=== PATIENT | male | born 1980 | race Caucasian/White ===

== ENCOUNTER → 2018-12-12 08:40 | Outpatient (CLI) | payer OTHER, SELFPAY ==
--- NOTE | 2018-12-12 | DI.MRI.S_ITS ---
PROCEDURE: MR LUMBAR SPINE WO CON INDICATIONS: Radiculopathy, lumbar region TECHNIQUE: Noncontrast sagittal T1 spin echo and T2 fast echo, sagittal STIR, axial T1 and T2 fast spin echo through the lumbar spine. In cases with scoliosis, additional coronal T2 fast spin echo may be performed. COMPARISON: None. FINDINGS: Image quality: Excellent. Alignment and Curvature: There is normal bony alignment. Bone Marrow: There is a small intraosseous hemangioma in L1. A small Schmorl's node is noted in the superior endplate of L1. No acute vertebral body compression fractures. Spinal Cord: Conus medullaris terminates at the L1 level. Visualized cord demonstrates normal signal and size. Paraspinous Soft Tissues: No paravertebral masses. T12-L1: Mild loss of disc height and disc desiccation. There is mild posterior disc bulge. No central canal or foraminal stenosis. L1-L2: Normal appearance. L2-L3: Normal appearance. L3-L4: Mild loss of disc height and disc desiccation. There is mild posterior disc bulge. No central canal or foraminal stenosis. L4-L5: Normal appearance. L5-S1: Normal appearance. IMPRESSION: 1. Early degenerative disc disease at T12-L1 and L3-L4 with mild loss of disc height, disc desiccation and mild posterior disc bulge. 2. No central canal stenosis. 3. No foraminal stenosis. Dictated by: Shaquille Foley M.D. on 12/12/2018 at 11:09 Approved by: Shaquille Foley M.D. on 12/12/2018 at 11:14
== END ==
PROVIDERS: PCP Family Medicine; Visit Provider Family Medicine
DX: M51.16 Intervertebral disc disorders with radiculopathy, lumbar region (principal); M51.15 Intervertebral disc disorders with radiculopathy, thoracolumbar region
CPT/HCPCS: 72148

== ENCOUNTER → 2019-04-17 18:41 | Outpatient (CLI) | payer OTHER, SELFPAY ==
--- NOTE | 2019-04-17 | DI.MRI.S_ITS ---
PROCEDURE: MR PELVIS WO CON INDICATIONS: RLQ PAIN TECHNIQUE: Noncontrast coronal and axial T1 spin echo and STIR through the bony pelvis. COMPARISON: [facility], MR, MR LUMBAR SPINE WO CON, 12/12/2018, 9:08. [facility] [place], CR, XR PELVIS WITH LATERAL HIP RIGHT, 04/08/2019, 10:36. FINDINGS: Image quality: Excellent. Bones: Bone marrow of the pelvic ring, sacrum, and proximal femurs show normal signal throughout. No intraosseous lesions or fractures identified. SI joints are symmetric. No avascular necrosis of the femoral heads. Mild hip DJD. Tendons: The gluteus medius and minimus tendons appear intact, without associated muscle atrophy. The nearby proximal iliotibial band also appears intact. The iliopsoas tendon appears intact, without adjacent bursal fluid collections. The origin of the hamstring tendon is intact at the ischial tuberosity, as well as the associated sacrotuberous ligament. The straight and reflected heads of the rectus femoris muscle origin appear intact, as well as the conjoint tendon. Soft tissues: Visualized muscles demonstrate normal bulk and internal signal. No joint effusions. No free pelvic fluid. Probable visualization of the appendix in the right lower quadrant without stranding inflammatory change or fluid. Bladder is decompressed and evaluation. Genitourinary structures and bowel loops appear normal where visualized. IMPRESSION: Negative exam. No abnormality to explain the patient's right lower quadrant pain identified. No acute musculoskeletal injury or free fluid in the right lower quadrant. Dictated by: Sudhakar Shen M.D. on 04/18/2019 at 9:10 Approved by: Sudhakar Shen M.D. on 04/18/2019 at 9:18
== END ==
PROVIDERS: PCP Family Medicine; Visit Provider Physical Medicine & Rehabilitation Pain Medicine
DX: R10.31 Right lower quadrant pain (principal)
CPT/HCPCS: 72195